=== PATIENT | male | born 1940 | race Caucasian/White ===

== ENCOUNTER → 2018-04-18 12:03 | Outpatient (CLI) | payer MEDICARE, SELFPAY ==
--- NOTE | 2018-04-18 12:09 | NVE_ITS ---
Venous Exam Indications: 729.5 Pain in limb. IMPRESSIONS 1. There is no evidence of significant Reflux. 2. No evidence of deep or superficial vein thrombosis involving the right lower extremity Right lower extremity venous duplex evaluation. Doppler flow study including spectral analysis, color and handy scale imaging. Location: Vascular laboratory. Patient status: Outpatient. Tables: Venous flow and imaging: + +-------+ + Location Overall Flow properties + +-------+ + Right common femoral Patent Normal phasicity; spontaneous; normal augmentation; compressible + +-------+ + Right saphenofemoral junction Patent Compressible + +-------+ + Right profunda femoral Patent Compressible + +-------+ + Right femoral Patent Normal phasicity; spontaneous; normal augmentation; compressible + +-------+ + Right greater saphenous Patent Normal phasicity; spontaneous; normal augmentation; compressible + +-------+ + Right popliteal Patent Normal phasicity; spontaneous; normal augmentation; compressible + +-------+ + Right posterior tibial Patent Compressible + +-------+ + Right peroneal Patent Compressible + +-------+ + Right gastrocnemius Patent Compressible + +-------+ + Right soleal Patent Compressible + +-------+ + (Report amended ) Electronically signed by: Tra Hedrick [id number]
== END ==
PROVIDERS: PCP Family Medicine; Visit Provider Family Medicine
DX: M79.604 Pain in right leg (principal); M79.89 Other specified soft tissue disorders; I83.813 Varicose veins of bilateral lower extremities with pain
CPT/HCPCS: 93971

== ENCOUNTER 2019-04-18 14:00 | Outpatient (RCR) | payer MEDICARE, SELFPAY ==
--- NOTE | 2019-03-30 11:22 | HMH.PTOPEV ---
PT Outpatient Evaluation Rehab PT Outpatient Evaluation Start: 03/30/19 10:04 Freq: Status: Active Protocol: Document 03/30/19 11:12 BREEZY (Rec: 03/30/19 11:22 PHOTITA [id number]) Electronically Signed By Jonnie Anderson, PT 03/30/19 11:12 Outpatient Therapy Subjective History Subjective History Pt is 78 yowm who presents with c/o pain in the left UE x ~ 2 wks without numbness or tingling associated and with insidious onset of symptoms. He reports no pain in the neck , but deep aching sensation in the left upper arm that is intermittent. He reports he was prescribed prednisone for 1 wk which helped his symptoms significantly. He has hx of CAD with stent. He reports wanting to return to golf pain free. Chief Complaint Pain Symptom Type Ache Symptoms Relieved By Prescription Meds Symptoms Aggravated By Physical Activity Prior Functional Limitations None Current Functional Limitations Driving,Recreation Activity Symptom Description Intermittent Level of pain today (0-10) 2 Pain scale - at its worst (0-10) 4 Cervical Eval Posture Head/C-Spine Posture Sitting Position Extended Head/C-Spine Posture Standing Position Extended Flexibility Deficits Upper Trapezius Muscle Length (R) Moderate Tightness,(L) Moderate Tightness Pectoralis Major Muscle Length (R) Moderate Tightness,(L) Moderate Tightness Pectoralis Minor Muscle Length (R) Moderate Tightness,(L) Moderate Tightness Passive Joint Mobility Cervical PIVM Dec: R C2/3 L C2/3 R C3/4 L C3/4 R C4/5 L C4/5 R C5/6 L C5/6 R C6/7 L C6/7 R C7/T1 L C7/T1 WNL: R OA L OA R AA L AA AROM Cervical Spine Extension Active Range of 00-40 Motion (degrees) Cervical Spine Flexion Active Range of 0-55 Joaquin
== END 2019-04-18 14:05 | disposition home or self-care (01) ==
LOC: PT 14:00
PROVIDERS: PCP Family Medicine; Visit Provider Family Medicine
DX: M54.12 Radiculopathy, cervical region (principal)
CPT/HCPCS: 97010; 97014; 97033; 97035; 97110; 97140; 97163; G0283

== ENCOUNTER → 2019-10-06 15:54 | Outpatient (CLI) | payer MEDICARE, SELFPAY ==
--- NOTE | 2019-10-06 16:01 | CA_ITS ---
APPROVED REPORT Left Lower Extremity Venous Study for DVT. Yard Switch Operator: Amee Romero, RT(R) Indications Lower Extremity Pain: Current Smoker Woke up this morning with pain in the left lateral calf. Denies trauma. Risk Factors Hyperlipidemia, states he has a history of blood clot Vein Imaging CFV (L): compressive, spontaneous, phasic, augmentation FEM (L): compressive, spontaneous, phasic, augmentation POP (L): compressive, spontaneous, phasic, augmentation PTV (L): Compressible GSV (L): compressive, spontaneous, phasic, augmentation SSV (L): Compressible Peroneals (L):Compressible GAS (L): Compressible Findings No evidence of DVT or superficial thrombophlebitis in the veins scanned of the left lower extremity. Conclusion No evidence of DVT or superficial thrombophlebitis in the veins scanned of the left lower extremity. Electronically signed by : Eitan Gonzalez, 10/08/2019 11:19:29
== END ==
PROVIDERS: PCP Family Medicine; Visit Provider Family Medicine
DX: M79.662 Pain in left lower leg (principal); Z86.718 Personal history of other venous thrombosis and embolism
CPT/HCPCS: 93971

== ENCOUNTER → 2022-05-29 13:31 | Outpatient (CLI) | payer MEDICARE, SELFPAY ==
--- NOTE | 2022-05-29 13:41 | CA_ITS ---
FINAL REPORT TECHNIQUE: Ultrasound images of the deep venous system were obtained from the right groin to the calf veins. CLINICAL HISTORY: RLE edema x 1 week. Patient denies trauma. Hx of DVT. HTN, HLD. FINDINGS: The deep venous system is normally compressible. Normal flow is identified. IMPRESSION: No evidence of right lower extremity DVT. Reviewed, Interpreted and Dictated by David Moody III, MD Transcribed by Kojo Zavala Authenticated and [facility]
== END ==
PROVIDERS: PCP Family Medicine; Visit Provider Family Medicine
DX: M79.604 Pain in right leg (principal); M79.89 Other specified soft tissue disorders
CPT/HCPCS: 93971

== ENCOUNTER 2022-06-24 11:03 | Day surgery (SDC) | payer MEDICARE, SELFPAY ==
[2022-06-11 13:55] VITALS: BMI 25.0
[2022-06-24 12:20] VITALS: BP 137/63; PULSE 66; RESP 18; TEMP 36.6; O2SAT 99
--- NOTE | 2022-06-24 14:32 | SUR.PREOP ---
1415 - PT ASSISTED TO BATHROOM AND BACK TO BED. NO NEEDS OR CONCERNS VOICED. REMAINS AT BEDSIDE.
[2022-06-24 14:43] VITALS: O2SAT 97
--- NOTE | 2022-06-24 14:44 | EXP.ANES.CKL ---
[facility] Medical History Hyperlipidemia Rheumatoid arthritis Surgical History History of cholecystectomy History of surgery Family History Other Family history of hypertension Family history of tuberculosis Social History (Updated 06/24/22 @ 12:29 by Anna Mao RN) Smoking Status: Current every day smoker tobacco type: pipe years smoked: 50 alcohol intake: never substance use type: denies use current occupational status: retired Travel in the last 8 weeks: None caffeine: Yes special nat needs: No agree to transfusion: No do you feel safe at home: Yes victim of physical abuse: No victim of emotional abuse: No victim of sexual abuse: No would you like helpful sources: No [facility] Anesthesia Checklist Patient Identification Patient Identification: Arm Band Structural Data Admitted From: Home Planned Operative Procedure/s: colonoscopy Consent for Planned Operative Procedure(s) Verified: Yes Verified Documents: Surgical Consent and History and Physical NPO Status Verified Time NPO: 00:00 Additional verifications Anesthesia Reactions: No Airway Assessment C-Spine Mobility Assessed: Yes TMJ Mobility Assessed: Yes Dentition: Poor Dentition Neurological Assessment Level of Consciousness: Awake and Alert Anesthesia Plan Anesthesia Risk discussed: Yes Anesthesia Plan: Verified ASA Class: III Anesthesia Type: MAC
--- NOTE | 2022-06-24 15:05 | HMH.SCOPE ---
Procedure: Date: 06/24/22 Patient Date of :: 1940 Procedure Performed:: Colonoscopy Indications:: The patient is an 82 year old who presents for colooscopy evaluation of diarrhea. He relates diarrhea in April, but symptom has now improved. He has never had a colonoscopy. Performing Provider:: Lincoln Sykes MD Referring Provider:: Brendan Cabrera Sedation:: See RN records Procedure:: After placing the patient in the left lateral decubitus position, the colonoscopy was gently inserted into the rectum and under direct visualization advanced to the cecum which was identified by transillumination in the right lower quadrant, identification of the ileocecal valve, appendiceal orifice, and cecal strap. Color, texture, mucosa, and anatomy of the colon were carefully examined with the scope. Findings:: Anal canal: normal Rectum: internal hemorhoids. Polyp 7 mm in size. Removed with hot snare polypectomy. Sigmoid colon: Diverticulosis Descending colon: normal without polyps or inflammatory changes Splenic flexure: normal Transverse colon: normal without polyps or inflammatory changes Hepatic flexure: normal Ascending colon: normal without polyps or inflammatory changes Cecum: normal Terminal ileum: not visualized Impression: Polyp of rectum Sigmoid diverticulosis Floppy and tortuous colon Recommendations:: Await pathology results No further surveillance colonoscopy can be recommended Complications:: none Estimated blood obtained (mL): 0
[2022-06-24 15:06] VITALS: BP 101/51; PULSE 61; RESP 18; TEMP 36.1; O2SAT 97
[2022-06-24 15:14] VITALS: BP 119/51; PULSE 57; RESP 18; O2SAT 98
[2022-06-24 15:24] VITALS: BP 99/55; PULSE 61; RESP 18; O2SAT 100
[2022-06-24 15:37] VITALS: BP 117/45; PULSE 60; RESP 18; O2SAT 98
== END 2022-06-24 15:39 | disposition home or self-care (01) ==
PROVIDERS: PCP Family Medicine; Visit Provider Internal Medicine
PROC: 0DJD8ZZ Inspection of Lower Intestinal Tract, Via Natural or Artificial Opening Endoscopic (ICD-10-PCS; CPT 45378; principal; 2022-06-24 12:30)
DX: D12.8 Benign neoplasm of rectum (principal); K64.8 Other hemorrhoids; Z72.0 Tobacco use; Z79.899 Other long term (current) drug therapy
CPT/HCPCS: 45385; 88305

== ENCOUNTER 2022-08-10 12:38 | Emergency (ER) | payer MEDICARE, SELFPAY ==
--- NOTE | 2022-08-10 12:38 | ECG_ITS ---
APPROVED REPORT Exam: Resting ECG HR:70 bpm ECG Measurements Heart Rate 70 AXES NE 168 P 52 QRSd 74 QRS 64 QT 371 T 51 QTc 392 Conclusion SINUS RHYTHM WITH MARKED SINUS ARRHYTHMIA BORDERLINE ECG UNCONFIRMED REPORT Electronically signed by : Brendan Gonsalves MD 08/11/2022 22:22:13
[2022-08-10 12:41] VITALS: BP 129/65; PULSE 70; RESP 18; TEMP 36.8; O2SAT 99; BMI 22.8
[2022-08-10 12:51] VITALS: BMI 22.8
--- NOTE | 2022-08-10 12:51 | XR_ITS ---
FINAL REPORT CLINICAL HISTORY: Precordial chest pain COMPARISON: 08/22/2018 FINDINGS: A single portable view of the chest was obtained. The heart size and pulmonary vascularity are within normal limits. The mediastinum is within normal limits. No acute pulmonary abnormality is identified. The bony thorax is intact. IMPRESSION: No active cardiopulmonary disease. Reviewed, Interpreted and Dictated by David Moody III, MD Transcribed by Deanna Cortez Authenticated and . [facility]
[2022-08-10 13:00] LABS: Coronavirus 19, PCR Not Detected (NotDetected); Influenza A, PCR Not Detected (NotDetected); Influenza B, PCR Not Detected (NotDetected)
[2022-08-10 13:11] LABS: Chloride 103 mmol/L (98-107); Potassium 3.6 mmoL/L (3.5-5.1); Sodium 140 mmol/L (136-145)
[2022-08-10 13:12] LABS: Basophils # 0.1 K/mm3 (0-0.2); Basophils % 1.3 % (0.1-2.0); Eosinophils # 0.2 K/mm3 (0.0-0.4); Eosinophils % 2.8 % (0.1-12.0); Hematocrit 40.6 % (42.0-52.0); Hemoglobin 13.1 g/dL (14.1-18.0); Lymphocytes # 1.9 K/mm3 (0.7-4.5); Lymphocytes % 22.7 % (10-50); Mean Corpuscular HGB Conc 32.3 g/dL (31.8-35.4); Mean Corpuscular Volume 99.1 fl (80-94); Mean Platelet Volume 8.5 fl (7.4-10.4); Monocytes # 0.5 K/mm3 (0.1-1.0); Monocytes % 5.8 % (1.7-9.3); Neutrophils # 5.6 K/mm3 (1.8-7.8); Neutrophils % 67.4 % (37.0-80.0); Platelet Count 231 K/mm3 (142-424); Red Cell Distribution Width 12.8 % (11.5-17.5); White Blood Count 8.2 K/mm3 (4.8-10.8)
[2022-08-10 13:14] LABS: Anion Gap 7.6 mEq/L (5-15); Blood Urea Nitrogen 16 mg/dl (9-20); Carbon Dioxide 33 mmol/L (22.0-30.0); Creatinine Clearance Estimated 55 mL/min (50-200); Estimated Glomerular Filt Rate 72 ml/min (>60); GFR (African American) 87 ML/MIN (>60)
[2022-08-10 13:15] LABS: Calcium 9.3 mg/dl (8.4-10.2); Glucose 107 mg/dl (74-100)
[2022-08-10 13:29] LABS: Troponin I < 0.01 ng/ml (0.00-0.034)
[2022-08-10 13:30] VITALS: BP 101/50; PULSE 65; RESP 18; O2SAT 99
--- NOTE | 2022-08-10 13:53 | HMH.EDGENADL ---
Discharge Plan Disposition Patient Disposition: Home, Self-Care Condition: Good Prescriptions Prescriptions: No Action pravastatin [Pravachol] 40 MG tablet 40 mg PO DAILY prednisone 5 MG tablet 5 mg PO DAILY Label Comments: TAKE 2 TABLETS BY MOUTH EVERY OTHER DAY Rx Instructions: ONE TABLET EVERY OTHER DAY pantoprazole 40 MG tablet,delayed release (DR/EC) 40 mg PO DAILY aspirin 81 MG tablet,chewable 81 mg PO DAILY folic acid 1 mg Tablet 1 mg PO DAILY Rx Instructions: UNKNOWN DOSE krill oil 500 mg Capsule 350 mg PO DAILY peg 3350-electrolytes [GaviLyte-C] 240-22.72-6.72 -5.84 gram recon soln 240 ml PO Q10M Rx Instructions: until fecal effluent is clear- follow mailed instructions Referrals Follow up/Referrals: Brendan Cabrera MD [Primary Care Provider] - See instructions Activity Restrictions/Add. Instructions Additional Instructions/Restrictions: Follow-up with cardiology and your primary care provider to ensure improvement in symptoms. If you have new or worsening symptoms, or any other concerning signs or symptoms, return to the ED for further evaluation. Clinical Impressions Clinical Impression: Chest pain Discharge ED Provider: Jorge Benavidez General Adult HPI General Chief complaint: Chest Pain Stated complaint: CP Time Seen by Provider: 08/10/22 12:40 Mode of Arrival: Ambulatory Source of Information: Patient Limitations: No Limitations Description of Symptoms (Recalled from ER Triage Doc. by RN): c/o middle chest pain that started around 11am today, pt took 2 nitros and 81 mg of aspirin at home and chest has went away. Hx of heart stent 12 years. History of Present Illness HPI narrative: This is an 82-year-old male with history of ACS, [place] status post stenting, currently on daily aspirin, hyperlipidemia, hypertension, GERD who is presenting with chest pain. Patient states that chest pain started approximately 2 hours prior to arrival. He was walking around in [facility] when he had acute onset burning that was substernal and did not radiate. Not associated with shortness of breath, nausea, vomiting, diaphoresis, weakness, back pain, neurologic deficits, or any other concerning history. Patient took 2 nitroglycerin and baby aspirin, this helped his pain and is currently not present on arrival. Related Data Home Medications Medication Instructions Recorded Confirmed aspirin 81 mg chewable tablet 81 mg PO DAILY Heart disease 08/22/18 06/24/22 pantoprazole 40 mg tablet,delayed 40 mg PO DAILY GERD 08/22/18 06/24/22 release pravastatin 40 mg tablet 40 mg PO DAILY Cholesterol 08/22/18 06/24/22 (Pravachol) prednisone 5 mg tablet 5 mg PO DAILY . 08/22/18 06/24/22 folic acid 1 mg tablet 1 mg PO DAILY . 06/24/22 06/24/22 krill oil 500 mg capsule 350 mg PO DAILY Supplement 06/24/22 06/24/22 peg 3350 240 gram-electrolytes 240 ml PO Q10M BOWEL PREP 06/24/22 06/24/22 22.72 gram-6.72 g-5.84 g powdr for soln (Gavilyte-C) Allergies Allergy/AdvReac Type Severity Reaction Status Date / Time No Known Allergies Allergy Verified 06/24/22 12:14 [facility] Disclaimer: The information contained in this section may have been updated after the patient was seen, as this information can be updated by other users. Medical History (Updated 08/10/22 @ 16:46 by Jorge Benavidez MD) Hyperlipidemia Rheumatoid arthritis Surgical History History of cholecystectomy History of surgery Family History Other Family history of hypertension Family history of tuberculosis Social History (Updated 06/24/22 @ 12:29 by Anna Mao RN) Smoking Status: Current every day smoker tobacco type: pipe years smoked: 50 alcohol intake: never substance use type: denies use current occupational status: retired Travel in t
[2022-08-10 14:00] VITALS: BP 102/54; PULSE 59; RESP 18; O2SAT 99
[2022-08-10 14:30] VITALS: BP 101/56; PULSE 64; RESP 18; O2SAT 99
[2022-08-10 15:00] VITALS: BP 102/52; PULSE 59; O2SAT 97
--- NOTE | 2022-08-10 16:09 | PC.NURSE ---
2nd troponin sent to lab
[2022-08-10 16:44] LABS: Troponin I < 0.01 ng/ml (0.00-0.034)
[2022-08-10 17:41] VITALS: BP 107/62; PULSE 76; RESP 16; TEMP 36.8; O2SAT 98
== END 2022-08-10 16:50 | disposition home or self-care (01) ==
PROVIDERS: Emergency Provider Emergency Medicine; PCP Family Medicine
DX: R07.2 Precordial pain (principal); Z20.822 Contact with and (suspected) exposure to COVID-19; I10 Essential (primary) hypertension; I24.9 Acute ischemic heart disease, unspecified; I25.2 Old myocardial infarction; K21.9 Gastro-esophageal reflux disease without esophagitis; E78.5 Hyperlipidemia, unspecified; M06.9 Rheumatoid arthritis, unspecified; F17.290 Nicotine dependence, other tobacco product, uncomplicated; Z79.52 Long term (current) use of systemic steroids; Z79.82 Long term (current) use of aspirin; Z79.899 Other long term (current) drug therapy; Z95.5 Presence of coronary angioplasty implant and graft; Z82.49 Family history of ischemic heart disease and other diseases of the circulatory system; Z83.1 Family history of other infectious and parasitic diseases
CPT/HCPCS: 71045; 80048; 84484; 85025; 93005; 99285; C9803; U0003; U0005

== ENCOUNTER 2024-04-02 07:59 | Emergency (ER) | payer MEDICARE, OTHER, SELFPAY ==
[2024-04-02 08:10] VITALS: BP 162/61; PULSE 64; RESP 19; TEMP 36.8; O2SAT 100; BMI 23.5
--- NOTE | 2024-04-02 08:16 | EXP.UTC ---
Discharge Plan Disposition Patient Disposition: Home, Self-Care Condition: Good Prescriptions Prescriptions: New permethrin 5 % cream 1 applic topical Q14D Qty: 60 0RF Rx Instructions: apply second treatment 14 days after first treatment if live lice remain diphenhydramine HCl 25 mg capsule 25 mg PO Q6HP PRN (Reason: Itching) Qty: 30 0RF methylprednisolone 4 mg Tablets,Dose Pack 4 mg PO DIRECTED 6 Days Qty: 21 0RF Rx Instructions: Take 1 pack as directed for 6 days triamcinolone acetonide 0.1 % cream 1 applic topical BID PRN (Reason: itching) Qty: 30 0RF No Action latanoprost 0.005 % drops 1 drp ophthalmic (eye) DAILY pravastatin 40 mg tablet 40 mg PO DAILY pantoprazole 40 mg tablet,delayed release (DR/EC) 40 mg PO DAILY timolol maleate 0.5 % drops 0.5 drp ophthalmic (eye) DAILY Referrals Follow up/Referrals: Brendan Cabrera MD [Primary Care Provider] - See instructions Activity Restrictions/Add. Instructions Additional Instructions/Restrictions: Try to identify and avoid contact with the offending substance. Don't start the oral steroids until tomorrow. The diphenhydramine (benedryl) will make you drowsy, so don't drive or operate heavy machinery after taking it. Don't put the topical steroids (triamcinolone) on your face or your groin. Follow up with your regular doctor. GO TO THE ER FOR ANY WORSENING SYMPTOMS OR CONCERNS Clinical Impressions Clinical Impression: Contact dermatitis Instructions Patient Instructions: Contact Dermatitis, DI for Contact Dermatitis, Dexamethasone Injection Print Language Print Language: Sinhala Discharge ED Provider: [facility] General Stated complaint: rash on legs arms Time Seen by Provider: 04/02/24 08:16 Related Data Home Medications ?Medication ?Instructions ?Recorded ?Confirmed latanoprost 0.005 % eye drops 1 drp ophthalmic (eye) DAILY 04/02/24 04/02/24 pantoprazole 40 mg tablet,delayed 40 mg PO DAILY 04/02/24 04/02/24 release pravastatin 40 mg tablet 40 mg PO DAILY 04/02/24 04/02/24 timolol maleate 0.5 % eye drops 0.5 drp ophthalmic (eye) DAILY 04/02/24 04/02/24 Previous Rx's ?Medication ?Instructions ?Recorded diphenhydramine HCl 25 mg capsule 25 mg PO Q6HP PRN Itching #30 caps 04/02/24 methylprednisolone 4 mg tablets in 4 mg PO DIRECTED 6 days #21 tabs 04/02/24 a dose pack permethrin 5 % topical cream 1 applic topical Q14D 2 doses #60 04/02/24 grams triamcinolone acetonide 0.1 % 1 applic topical BID PRN itching 04/02/24 topical cream #30 grams Allergies Allergy/AdvReac Type Severity Reaction Status Date / Time No Known Allergies Allergy Verified 06/24/22 12:14 [facility] Disclaimer: The information contained in this section may have been updated after the patient was seen, as this information can be updated by other users. Medical History (Updated 04/02/24 @ 08:51 by Jonathan Duggan APRN) Rheumatoid arthritis Hyperlipidemia Surgical History History of surgery History of cholecystectomy Family History Other Family history of hypertension Family history of tuberculosis Social History (Updated 06/24/22 @ 12:29 by Anna Mao RN) Smoking Status: Current every day smoker tobacco type: pipe years smoked: 50 alcohol intake: never substance use type: denies use current occupational status: retired Travel in the last 8 weeks: None caffeine: Yes special nat needs: No agree to transfusion: No do you feel safe at home: Yes victim of physical abuse: No victim of emotional abuse: No victim of sexual abuse: No would you like helpful sources: No ROS Obtained: Yes All systems reviewed & no additional complaints except as documented Constitutional Constitutional: Denies chills and Denies fever(s) Eyes Eyes: Denies eye discharge ENT Ears, Nose, Mouth, and Throat: Denies dizziness, Denies otalgia and Denies sore throat Cardiovascular Cardiovascular: Denies chest pain Respiratory Respiratory: Denies shortness of breath, Denies chest congestion, Denies cough, Denies stridor and Denies wheezing Gastrointestinal Gastrointestingal: Denies nausea or vomiting Musculoskeletal Musculoskeletal: Reports system reviewed and no additional complaints, except as documented and Denies arthralgias Integumentary/Breasts Skin/Breast: Reports as per HPI and Reports rash Neurologic Neurologic: Denies dizziness and Denies paresthesias Allergic/Immunologic Allergic/Immunologic: Denies wheezing Physical Exam General General appearance: alert and in no apparent distress Head Head exam: atraumatic, normocephalic and normal inspection Eye Eye exam: Present normal appearance, PERRL and EOMI ENT ENT exam: Present normal exam, normal oropharynx, mucous membranes moist, TM's normal bilaterally and normal external ear exam Neck Neck exam: Present normal inspection, full ROM and trachea midline; Absent meningismus or lymphadenopathy Chest Chest inspection: Present normal inspection and symmetric chest wall rise; Absent tenderness Respiratory Respiratory exam: Present normal lung sounds bilaterally; Absent respiratory distress Cardiovascular Cardiovascular exam: Present regular rate and normal rhythm; Absent JVD Abdominal Exam Abdominal exam: Present soft and normal bowel sounds; Absent distention, tenderness or guarding Extremities Exam Extremities exam: Present normal inspection, full ROM and normal capillary refill; Absent calf tenderness Back Exam Back exam: Present normal inspection; Absent tenderness Neurological Exam Neurological exam: Present alert and oriented X3 Psychiatric Psychiatric exam: Present normal affect and normal mood Skin Skin exam: Present rash Lymphatic Lymphatic Findings: no adenopathy Medical Decision Making Medical Records Medical records reviewed: No I reviewed the patient's medical records. Michele Inquiry Pt receiving controlled substance: No
[2024-04-02] MEDS: DEXAMETHASONE 4MG/ML 1ML VIAL 8 MG IM (08:39)
[2024-04-02 08:52] VITALS: BP 162/61; PULSE 64; RESP 19; TEMP 36.8; O2SAT 100
== END 2024-04-02 08:55 | disposition home or self-care (01) ==
PROVIDERS: Emergency Provider Nurse Practitioner Family; PCP Family Medicine
DX: L25.9 Unspecified contact dermatitis, unspecified cause (principal)
CPT/HCPCS: 99212; 99214; G0463; J1100

== ENCOUNTER 2025-06-17 07:14 | Emergency (ER) | payer MEDICARE, SELFPAY ==
[2025-06-17] VITALS (12 sets, daily range): BP systolic 100–137; BP diastolic 39–65; PULSE 70–89; RESP 16; TEMP 36.9; O2SAT 79–99
--- NOTE | 2025-06-17 07:39 | [facility].EDGENADL ---
Discharge Plan Disposition Patient Disposition: Home, Self-Care Prescriptions Prescriptions: No Action latanoprost 0.005 % drops 1 drp ophthalmic (eye) DAILY pravastatin 40 mg tablet 40 mg PO DAILY pantoprazole 40 mg tablet,delayed release (DR/EC) 40 mg PO DAILY timolol maleate 0.5 % drops 0.5 drp ophthalmic (eye) DAILY permethrin 5 % cream 1 applic topical Q14D Qty: 60 0RF Rx Instructions: apply second treatment 14 days after first treatment if live lice remain diphenhydramine HCl 25 mg capsule 25 mg PO Q6HP PRN (Reason: Itching) Qty: 30 0RF methylprednisolone 4 mg Tablets,Dose Pack 4 mg PO DIRECTED 6 Days Qty: 21 0RF Rx Instructions: Take 1 pack as directed for 6 days triamcinolone acetonide 0.1 % cream 1 applic topical BID PRN (Reason: itching) Qty: 30 0RF Referrals Follow up/Referrals: Brendan Cabrera MD [Primary Care Provider, Medical] - See instructions Activity Restrictions/Add. Instructions Additional Instructions/Restrictions: Follow-up with your primary care doctor as needed. If you develop any new or worsening symptoms, such as cough, fever, abdominal pain, chest pain, or if you become concerned for your health for any reason, return to the emergency department for evaluation. Clinical Impressions Clinical Impression: Chilling Print Language Print Language: German Discharge ED Provider: Pineda Ku General Adult HPI General Chief complaint: Upper Respiratory Infection Stated complaint: shivers Time Seen by Provider: 06/17/25 07:31 Mode of Arrival: Ambulatory Source of Information: Patient Limitations: No Limitations History of Present Illness HPI narrative: Milton Howe is an 85y male with a history of rheumatoid arthritis and hyperlipidemia, cholecystectomy who presents to the emergency department for complaints of shivers. Patient states that he woke up at 4 this morning and had a bowel movement that was slightly loose. He stated that he was shivering when he got back in bed and could not get warm. He had another bowel movement prior to coming to the emergency department and was shivering on the way over here, however it has stopped since he has been here. He denies any recent chest pain, shortness of breath, cough, abdominal pain, dysuria, hematuria, fever. He states that he was not having any chest pain but took 2 nitroglycerin at home. He states that he took a carbamazepine pill yesterday for headache that resolved his headache. Related Data Home Medications ?Medication ?Instructions ?Recorded ?Confirmed latanoprost 0.005 % eye drops 1 drp ophthalmic (eye) DAILY 04/02/24 04/02/24 pantoprazole 40 mg tablet,delayed 40 mg PO DAILY 04/02/24 04/02/24 release pravastatin 40 mg tablet 40 mg PO DAILY 04/02/24 04/02/24 timolol maleate 0.5 % eye drops 0.5 drp ophthalmic (eye) DAILY 04/02/24 04/02/24 Previous Rx's ?Medication ?Instructions ?Recorded diphenhydramine HCl 25 mg capsule 25 mg PO Q6HP PRN Itching #30 caps 04/02/24 methylprednisolone 4 mg tablets in 4 mg PO DIRECTED 6 days #21 tabs 04/02/24 a dose pack permethrin 5 % topical cream 1 applic topical Q14D 2 doses #60 04/02/24 grams triamcinolone acetonide 0.1 % 1 applic topical BID PRN itching 04/02/24 topical cream #30 grams Allergies Allergy/AdvReac Type Severity Reaction Status Date / Time No Known Allergies Allergy Verified 06/24/22 12:14 [facility] Disclaimer: The information contained in this section may have been updated after the patient was seen, as this information can be updated by other users. Medical History (Updated 06/17/25 @ 09:35 by Pineda Ku MD) Rheumatoid arthritis Hyperlipidemia Surgical History History of surgery History of cholecystectomy Family History Other Family history of hypertension Family history of tuberculosis Social History Smoking Status: Current every day smoker tobacco type: pipe years smoked: 50 alcohol intake: never substance use type: denies use current occupational status: retired Travel in the last 8 weeks?: None caffeine: Yes special nat needs: No agree to transfusion: No do you feel safe at home: Yes victim of physical abuse: No victim of emotional abuse: No victim of sexual abuse: No would you like helpful sources: No Have you lived/traveled outside [place] in past 30 days?: No Contact w/someone who lives/traveled outside [place] past 30 days?: No Exposure to someone with infectious disease in past 14 days?: No Do you have a fever (greater than 100.4 F or 38 C)?: No Have you tested positive for COVID-19?: No Exposed to someone with COVID-19 in past 14 days?: No Do you have a sore throat?: No Do you have a cough?: No Do you have any weakness?: No Do you have any diarrhea?: No Are you experiencing any unusual bleeding?: No Do you have any muscle aches/pain?: No Do you have any abdominal pain?: No Are you experiencing loss of taste or smell?: No Other Medical History Have you received the Flu Vaccine for this season: Yes Have you received the Pneumonia Vaccine: Yes ROS Obtained: Yes Systems reviewed as appropriate & no additional complaints except as documented Physical Exam General General appearance: alert and in no apparent distress Head Head exam: atraumatic Eye Eye exam: Present normal appearance ENT ENT exam: Present normal external ear exam Neck Neck exam: Present full ROM Chest Chest inspection: Present symmetric chest wall rise Respiratory Respiratory exam: Present normal lung sounds bilaterally; Absent respiratory distress, wheezes or stridor Cardiovascular Cardiovascular exam: Present regular rate and normal rhythm Abdominal Exam Abdominal exam: Present soft; Absent tenderness or guarding exam: Present deferred Extremities Exam Extremities exam: Present normal inspection Back Exam Back exam: Present normal inspection Neurological Exam Neurological exam: Present alert and oriented X3 Psychiatric Psychiatric exam: Present normal affect Skin Skin exam: Present warm and dry Medical Decision Making Medical Records Screening: Per USPSTF and CDC recommendations, given the prevalence of disease in our region, it is our hospital?s policy to screen for HIV and viral Hepatitis for all patients aged 18 and over and those with ongoing risk factors. Michele Inquiry Pt receiving controlled substance: No Vital Signs: 06/17/25 07:17 06/17/25 07:17 06/17/25 07:21 Temperature 98.5 F 98.5 F Temperature Source Oral Oral Pulse Rate 88 89 Pulse Rate [Right] 88 Respiratory Rate 16 16 Blood Pressure 137/65 137/65 Blood Pressure [Right Arm] 137/65 Blood Pressure Mean [Right Arm] 89 Blood Pressure Source Automatic Cuff Blood Pressure Source [Right Arm] Automatic Cuff Blood Pressure Position Supine Blood Pressure Position [Right Arm] Supine 02 Sat by Pulse Oximetry 98 98 79 L Oxygen Delivery Method Room Air Room Air 06/17/25 07:30 06/17/25 07:40 06/17/25 08:00 Temperature Temperature Source Pulse Rate 86 79 Pulse Rate [Right] Respiratory Rate Blood Pressure 105/39 L 112/40 L Blood Pressure [Right Arm] Blood Pressure Mean [Right Arm] Blood Pressure Source Blood Pressure Source [Right Arm] Blood Pressure Position Blood Pressure Position [Right Arm] 02 Sat by Pulse Oximetry 99 98 97 Oxygen Delivery Method Room Air 06/17/25 08:14 06/17/25 08:15 06/17/25 08:30 Temperature Temperature Source Pulse Rate 89 84 82 Pulse Rate [Right] Respiratory Rate Blood Pressure 112/40 L 108/49 L 100/45 L Blood Pressure [Right Arm] Blood Pressure Mean [Right Arm] Blood Pressure Source Blood Pressure Source [Right Arm] Blood Pressure Position Blood Pressure Position [Right Arm] 02 Sat by Pulse Oximetry 96 98 95 Oxygen Delivery Method Room Air Room Air Room Air 06/17/25 08:45 06/17/25 09:00 06/17/25 09:15 Temperature Temperature Source Pulse Rate 81 79 78 Pulse Rate [Right] Respiratory Rate Blood Pressure 101/44 L 104/45 L 110/53 L Blood Pressure [Right Arm] Blood Pressure Mean [Right Arm] Blood Pressure Source Blood Pressure Source [Right Arm] Blood Pressure Position Blood Pressure Position [Right Arm] 02 Sat by Pulse Oximetry 98 95 95 Oxygen Delivery Method Room Air Room Air Room Air Lab Data Lab Results 06/17/25 07:28: SARS-CoV-2 (PCR) Not detected, Influenza A Untype (PCR) Not detected, Influenza Type B (PCR) Not detected 06/17/25 07:48: WBC 9.5, RBC 3.60 L, Hgb 11.7 L, Hct 35.1 L, MCV 97.5 H, MCH 32.5 H, MCHC 33.3, RDW 12.3, Plt Count 143, MPV 10.8 H, Neut % (Auto) 84.8 H, Lymph % (Auto) 7.4 L, [place] % (Auto) 5.8, Eos % (Auto) 1.4, Baso % (Auto) 0.4, Neut # (Auto) 8.1 H, Lymph # (Auto) 0.7, [place] # (Auto) 0.6, Eos # (Auto) 0.1, Baso # (Auto) 0.0, Sodium 135 L, Potassium 3.7, Chloride 103, Carbon Dioxide 28, Anion Gap 7.7, BUN 20, Creatinine 1.00, Estimated Creat Clear 2, Estimated GFR 71, Est GFR ( Amer) 86, Glucose 106 H, Calcium 7.9 L, Total Bilirubin 1.0, AST 39, ALT 20, Alkaline Phosphatase 71, Total Protein 6.6, Albumin 3.6, Globulin 3.0, Albumin/Globulin Ratio 1.2, TSH 0.71 06/17/25 08:12: Urine Color Yellow, Urine Appearance Clear, Urine pH 6.0, Ur Specific [place] 1.010, Urine Protein Trace, Urine Glucose (UA) Negative, Urine Ketones Negative, Urine Blood Negative, Urine Nitrate Negative, Urine Bilirubin Negative, Urine Urobilinogen 0.2, Ur Leukocyte Esterase Negative, Urine RBC None, Urine WBC Occasional, Ur Squamous Epith Cells Occasional, Urine Bacteria None 06/17/25 07:48 06/17/25 07:48 Orders (Tests/Meds): ORDERS Category Date Time Status CBC w/Auto Diff [Complete Blood Count Auto Diff] Stat Lab 06/17/25 07:48 Completed CMP [Comprehensive Metabolic Panel] Stat Lab 06/17/25 07:48 Completed HIV Combo Stat Lab 06/17/25 07:48 Received Hepatitis C Ab Qual. W/ RFX Stat Lab 06/17/25 07:48 Received Rapid PCR Covid and Flu A/B Stat Lab 06/17/25 07:28 Completed TSH [Thyroid Stimulating Hormone] Stat Lab 06/17/25 07:48 Completed UA [Urinalysis and Microscopic] Stat Lab 06/17/25 08:12 Completed Medical Decision Narrative: Milton Howe is an 85y male with a history of rheumatoid arthritis and hyperlipidemia, cholecystectomy who presents to the emergency department for complaints of shivers. Patient states that he woke up at 4 this morning and had a bowel movement that was slightly loose. He stated that he was shivering when he got back in bed and could not get warm. He had another bowel movement prior to coming to the emergency department and was shivering on the way over here, however it has stopped since he has been here. He denies any recent chest pain, shortness of breath, cough, abdominal pain, dysuria, hematuria, fever. He states that he was not having any chest pain but took 2 nitroglycerin at home. He states that he took a carbamazepine pill yesterday for headache that resolved his headache. On arrival, patient is hemodynamically stable with blood pressure 137/65, heart rate within normal limits, afebrile, oxygen saturation 98% on room air. Physical exam, as stated above, revealed overall well-appearing male in no distress. He is alert and oriented. His abdomen is soft, nontender nondistended. Cardiopulmonary exam without wheezing, rales or rhonchi. No murmurs or rubs. Physical exam is grossly unremarkable. Differential diagnosis includes, but is not limited to: Rigors secondary to being cold, electrolyte derangement, metabolic derangement, viral illness, urinary tract infection, low concern for pneumonia given patient's not having any respiratory symptoms with normal physical exam. No documented fever. He has not taken any antipyretics prior to arrival. Workup in the emergency department included: CBC, CMP, TSH, urinalysis, rapid COVID and flu swab COVID and flu negative. Normal white blood cell count at 9.5. Mild anemia at 11.7 and hematocrit of 35.1. Urinalysis without evidence of infection. TSH within normal limits. Given this, I feel the patient is appropriate for discharge at this time. Will give strict return precautions for any new or worsening symptoms or signs of infection. All questions were answered. He demonstrated understanding and was in agreement this plan. He was then discharged from the emergency department in stable condition. Critical Care Critical Care Time Critical Care Time: No
[2025-06-17 07:41] LABS: Coronavirus 19, PCR Not Detected (NotDetected); Influenza A, PCR Not Detected (NotDetected); Influenza B, PCR Not Detected (NotDetected)
[2025-06-17 08:06] LABS: Hematocrit 35.1 % (42.0-52.0); Hemoglobin 11.7 g/dL (14.1-18.0); Immature Granulocytes % 0.2 %; Mean Corpuscular HGB Conc 33.3 g/dL (31.8-35.4); Mean Corpuscular Hemoglobin 32.5 pg (27.0-31.2); Mean Corpuscular Volume 97.5 fl (80-94); Nucleated Red Blood Cells % 0 %; Platelet Count 143 K/mm3 (142-424); Red Blood Count 3.60 M/mm3 (4.60-6.20); Red Cell Distribution Width-SD 44.5 fL; White Blood Count 9.5 K/mm3 (4.8-10.8)
[2025-06-17 08:17] LABS: Microscopic, Urine URINE MICROSCOPIC (MICROSCOPIC)
[2025-06-17 08:30] LABS: Bilirubin,Urine Negative (Negative); Color,Urine YELLOW (Yellow); Glucose,Urine (UA) Negative (Negative); Ketones,Urine Negative (Negative); Leukocyte Esterase,Urine Negative (Negative); PH,Urine 6.0 (5.0-8.5); Protein,Urine TRACE (Negative); Specific Gravity, Urine 1.010 (1.005-1.030); Urobilinogen,Urine 0.2 EU/dl (0.2)
[2025-06-17 08:54] LABS: Albumin Level 3.6 g/dl (3.5-5.0); Chloride 103 mmol/L (98-107)
[2025-06-17 08:55] LABS: Potassium 3.7 mmoL/L (3.5-5.1); Sodium 135 mmol/L (136-145)
[2025-06-17 08:57] LABS: Alanine Aminotransferase 20 U/L (12-78); Albumin/Globulin Ratio 1.2 (1.1-1.8); Alkaline Phosphatase 71 U/L (38-126); Anion Gap 7.7 mEq/L (5-15); Aspartate Amino Transferase 39 U/L (17-59); Bilirubin,Total 1.0 mg/dl (0.2-1.3); Blood Urea Nitrogen 20 mg/dl (9-20); Carbon Dioxide 28 mmol/L (22.0-30.0); Creatinine Clearance Estimated 2 mL/min (50-200); Creatinine,Serum 1.00 mg/dl (0.66-1.25); Estimated Glomerular Filt Rate 71 ml/min (>60); GFR (African American) 86 ML/MIN (>60); Globulin 3.0 g/dL (1.3-3.2); Total Protein,Serum 6.6 g/dl (6.3-8.2)
[2025-06-17 08:58] LABS: Calcium 7.9 mg/dl (8.4-10.2); Glucose 106 mg/dl (74-100)
[2025-06-17 09:04] LABS: Squamous Epithelial Cell,Urine Occasional #/hpf (0-5); WBC,Urine Occasional #/hpf (0-3)
[2025-06-17 09:29] LABS: Thyroid Stimulating Hormone 0.71 uIU/mL (0.465-4.68)
[2025-06-17 13:31] LABS: Hepatitis C Ab Qual. W/ RFX NEGATIVE (Negative)
== END 2025-06-17 09:42 | disposition home or self-care (01) ==
PROVIDERS: Emergency Provider Student in an Organized Health Care Education/Training Program; PCP Family Medicine
DX: R68.83 Chills (without fever) (principal); M06.9 Rheumatoid arthritis, unspecified
CPT/HCPCS: 80053; 81001; 84443; 85025; 86803; 87389; 87636; 99283; 99284